=== PATIENT | male | born 1985 | race Caucasian/White ===

== ENCOUNTER 2019-12-02 08:10 | Emergency (ER) | payer OTHER, SELFPAY ==
[2019-12-02 08:29] VITALS: BP 157/96; PULSE 69; RESP 16; TEMP 36.7; O2SAT 99
--- NOTE | 2019-12-02 08:38 | ED.SKABFB ---
HPI - Skin/Abscess/Foreign Bdy General Chief complaint: Skin/Abscess/Foreign Body Stated complaint: Bite Time Seen by Provider: 12/02/19 08:38 Source: patient and RN notes reviewed Mode of arrival: ambulatory Limitations: no limitations History of Present Illness HPI narrative: This is a 34 years old male presented office for evaluations of possible skin infection on his belly region. He first noticed it a few days ago with some redness and irritation. Initially, he thought that he just scratches it but then he develops pain in his hip area with chills/hot flush and headache. Symptoms last about one day which have resolved by now. However, he thought the skin lesion has slight gotten bigger. He does not recall insect bite/removal tick. However, he has been working on his camper prior to onset of symptoms. TD is unknow. Related Data Home Medications Medication Instructions Recorded Confirmed lisinopril 12/02/19 Allergies Allergy/AdvReac Type Severity Reaction Status Date / Time No Known Allergies Allergy Unverified 09/25/19 09:31 Review of Systems Review of Systems: Narrative: CONSTITUTIONAL: Denies fever (he did not check) ENT: Denies congestion CARDIOVASCULAR: Denies chest pain, palpitation RESPIRATORY: Denies dyspnea GASTROINTESTINAL: Denies abdominal pain, nausea, vomiting GENITOURINARY: Denies urinary symptoms SKIN: Reports soreness/redness lesion on his left side of abdomen MUSCULOSKELETAL: Denies acute joints pain NEUROLOGIC: Denies lightheaded/dizziness All other systems reviewed are negative, except as documented in HPI. PMFSH Past Medical History Medical History (Updated 12/02/19 @ 09:24 by ERWIN Downing) HTN (hypertension) Family History Family History Other Family history of coronary artery disease Family history of malignant neoplasm Hypertension Comments At time of signature, I agree with nursing past medical, surgical, social and family history. There is no relevant family history pertinent to the presenting complaint. Exam Narrative: Exam Narrative: GENERAL: This is a well-nourished, well-developed patient, in no apparent distress. THROAT: Mucous membranes moist, posterior pharynx clear. NECK: Neck supple, non-tender without lymphadenopathy, masses or thyromegaly. CARDIOVASCULAR: Regular rate and rhythm without murmurs, gallops, or rubs. RESPIRATORY: Clear to auscultation. Breath sounds equal bilaterally. No wheezes, rales, or rhonchi. GASTROINTESTINAL: Abdomen soft, non-tender, nondistended. Bowel sounds are active. No hepato-splenomegaly, or palpable masses. No guarding. SKIN: left lower quadrant of abdomen noted erythema nodule with clear demarcation and slight tenderness to palpation without edematous/lyphmadenitits. NEURO: awake, alert, and oriented to person, place and time. There were no obvious focal neurologic abnormalities. Steady gait EXTREMITIES: Normal range of motion. No edema. [place] Coma Scale Eye Opening: Spontaneous 4 [place] Coma Scale Motor: Obeys Commands 6 [place] Coma Scale Verbal: Oriented 5 Course Vital Signs Vital signs: Vital Signs Temperature 98.1 F 12/02/19 08:29 Pulse Rate 69 12/02/19 08:29 Respiratory Rate 16 12/02/19 08:29 Blood Pressure 157/96 H 12/02/19 08:29 Pulse Oximetry 99 12/02/19 08:29 Temperature 98.1 F 12/02/19 08:29 Pulse Rate 69 12/02/19 08:29 Respiratory Rate 16 12/02/19 08:29 Blood Pressure 157/96 H 12/02/19 08:29 Pulse Oximetry 99 12/02/19 08:29 MDM - Skin/Abscess/Foreign Bdy MDM Narrative Medical decision making narrative: No obvious sign of tick bite/ulcerate lesions; however 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 Discharge instructions reviewed with patient, as well as provided in writing per nursing staff. The instructions also include specific and st
[2019-12-02] MEDS: TETANUS,DIPHTHERIA,AC PERTUSSIS ADULT (0.5 ML) BOOSTRIX IM (08:54)
== END 2019-12-02 09:16 | disposition home or self-care (01) ==
PROVIDERS: Emergency Provider Nurse Practitioner; PCP Registered Nurse
DX: L03.311 Cellulitis of abdominal wall (principal); Z23 Encounter for immunization; I10 Essential (primary) hypertension
CPT/HCPCS: 90471; 90715; 99213; G0463

== ENCOUNTER 2020-08-15 02:41 | Emergency (ER) | payer BC, SELFPAY ==
[2020-08-15] VITALS (7 sets, daily range): BP systolic 132–158; BP diastolic 83–101; PULSE 65–87; RESP 14–18; TEMP 36.1; O2SAT 97–100
--- NOTE | 2020-08-15 03:01 | ECG_ITS ---
Measurements Intervals [place] Rate: 66 P: -5 WV: 140 QRS: 17 QRSD: 99 T: 96 QT: 385 QTc: 405 Interpretive Statements SINUS RHYTHM MINIMAL Q WAVES- INFERIOR LEADS BORDERLINE T WAVE ABNORMALITY- HIGH LATERAL LEADS BASELINE ARTIFACT- V1 BORDERLINE ECG Electronically Signed On 08-15-2020 7:11:07 CDT by Turner Greenfield D.O.
--- NOTE | 2020-08-15 03:05 | ED.HA ---
HPI - Headache General Chief Complaint: Recheck/Abnormal Lab/Rx Stated Complaint: QUINTERO, elevated BP Time Seen by Provider: 08/15/20 02:53 History of Present Illness HPI Narrative: Today at work he says that he just wasn't feeling right. Symptoms started with a dull posterior headache radiating down the neck. He then began to feel dizzy and mildly diaphoretic. He became concerned, so he checked his blood pressure and it was about 160 systolic. He called his pcp and they told him to either go home or come here to get checked out. He recently changed and working night shifts and also recently started taking Adderall. Related Data Home Medications Medication Instructions Recorded Confirmed lisinopril 12/02/19 Allergies Allergy/AdvReac Type Severity Reaction Status Date / Time No Known Allergies Allergy Verified 08/15/20 02:49 Review of Systems Review of Systems: All systems reviewed & are unremarkable except as noted in HPI and below Constitutional: Constitutional: Denies chills and Denies fever(s) Eyes: Eyes: Reports no additional eye complaints Cardiovascular: Cardiovascular: Denies chest pain Respiratory: Respiratory: Denies dyspnea Gastrointestinal: Gastrointestinal: Denies abdominal pain, Denies nausea and Denies vomiting Genitourinary: Genitourinary: Reports no additional male genitourinary complaints Musculoskeletal: Musculoskeletal: Denies back pain Neurologic: Reports dizziness, Denies syncope, Reports headache(s) and Denies weakness PMFSH Past Medical History Medical History HTN (hypertension) Family History Family History Other Family history of coronary artery disease Family history of malignant neoplasm Hypertension Exam Const: General: healthy appearing, no acute distress and alert Orientation/consciousness: patient oriented x3 HENMT: Head: normal to inspection Neck: Neck: normal visual inspection and no lymphadenopathy Resp: Effort & Inspection: normal respiratory effort Auscultation: clear to auscultation bilaterally, no rales, no rhonchi and no wheezes Cardio: Jugular venous distension: no JVD Rate: regular rate Rhythm: regular rhythm Heart sounds: no murmurs GI: Inspection: non-distended GI Palp: Yes Soft to palpation and No Tenderness to palpation present (GI) Skin: General skin exam: normal color Neuro: General: patient oriented x3, moves all extremities, no focal motor deficits and CN's II-XI intact bilaterally Speech: normal speech Gait exam (Neuro): Normal gait present Extrem: General: normal to inspection and no edema Psych: Appearance: well kempt Affect: normal affect Course Vital Signs Vital signs: Vital Signs Temperature 36.1 C L 08/15/20 02:44 Pulse Rate 73 08/15/20 02:44 Respiratory Rate 14 08/15/20 02:44 Blood Pressure 158/101 H 08/15/20 02:44 Pulse Oximetry 97 08/15/20 02:44 Temperature 36.1 C L 08/15/20 02:44 Pulse Rate 87 08/15/20 03:51 Respiratory Rate 18 08/15/20 03:43 Blood Pressure 132/86 08/15/20 03:51 Pulse Oximetry 98 08/15/20 03:43 MDM - Headache MDM Narrative Medical decision making narrative: Symptoms most likely the result of new medication and schedule change. Headache resolved completely with treatment. Differential Diagnosis Differential diagnosis: Likely migraine and tension headache Medical Records Attestation: I reviewed the patient's medical records. Lab Data Attestation: I reviewed the patient's lab results. Result diagrams: 08/15/20 03:32 08/15/20 03:32 Labs: Lab Results 08/15/20 08/15/20 Range/Units 03:32 03:32 WBC 10.6 H (4.5-10.0) K/mm3 RBC 5.59 (4.6-6.20) M/mm3 Hgb 16.0 (14.0-18.0) g/dL Hct 47.4 (42.0-52.0) % MCV 84.8 (80-100) fl MCH 28.6 (26-34) pg MCHC 33.8 (32-36) g/dl RDW 12.4 (11.5-14.5)
[2020-08-15] MEDS: SODIUM CHLORIDE 0.9% IV 1,000 ML 999 ML IV CONT (03:35)
[2020-08-15] MEDS: diphenhydrAMINE HCl INJ 50 MG/ML VIAL 25 MG IV PUSH (03:36)
[2020-08-15] MEDS: METOCLOPRAMIDE HCL INJ 10 MG/2 ML VIAL IV PUSH (03:36)
[2020-08-15] MEDS: KETOROLAC 30 MG/ML VIAL (*BKC) IV PUSH (03:36)
[2020-08-15 03:42] LABS: Basophils Absolute Auto 0.1 K/mm3 (0.0-0.1); Basophils Percent Auto 0.6 % (0.2-1.2); Eosinophils Absolute Auto 0.1 K/mm3 (0-0.3); Eosinophils Percent Auto 1.1 % (0-4.4); Hematocrit 47.4 % (42.0-52.0); Immature Granulocyte Absolute 0.03 K/mm3 (0.00-0.031); Immature Granulocyte Percent A 0.3 % (0-0.5); Lymphocytes Absolute Auto 1.85 K/mm3 (0.9-3.2); Lymphocytes Percent Auto 17.4 % (18.3-44.2); Mean Corpuscular HGB Conc 33.8 g/dl (32-36); Mean Corpuscular Hemoglobin 28.6 pg (26-34); Mean Corpuscular Volume 84.8 fl (80-100); Mean Platelet Volume 9.6 fl (7.4-10.4); Monocytes Absolute Auto 0.7 K/mm3 (0.1-0.6); Monocytes Percent Auto 6.3 % (2.6-8.5); Neutrophils Absolute Auto 7.9 K/mm3 (1.3-6.7); Neutrophils Percent Auto 74.3 % (45.5-73.1); Platelet Count Result 225 k/mm3 (150-375); Red Blood Count 5.59 M/mm3 (4.6-6.20); Red Cell Distribution Width 12.4 % (11.5-14.5); White Blood Count 10.6 K/mm3 (4.5-10.0)
[2020-08-15 04:11] LABS: Anion Gap 7 mmol/L (8-16); Blood Urea Nitrogen 15 mg/dL (9-20); Calcium 9.8 mg/dL (8.4-10.2); Carbon Dioxide 27 mmol/L (22-30); Chloride 106 mmol/L (98-107); Estimated CRCL calculation 132 ml/min; Estimated Glomerular Filt Rate > 60; Glucose 98 mg/dL (75-110); Potassium 4.7 mmol/L (3.4-5.0); Sodium 140 mmol/L (137-145)
== END 2020-08-15 05:23 | disposition home or self-care (01) ==
PROVIDERS: Emergency Provider Emergency Medicine; PCP Registered Nurse
DX: R51.9 Headache, unspecified (principal); I10 Essential (primary) hypertension; R94.31 Abnormal electrocardiogram [ECG] [EKG]
CPT/HCPCS: 36415; 80048; 85025; 93005; 96365; 96375; 99284; J0131; J1200; J1885; J2765; J7030